=== PATIENT | female | born 1955 | race Caucasian/White ===

== ENCOUNTER → 2016-07-01 | Outpatient (CLI) | payer OTHER ==
[~2016-07-01] MED LIST: ACET325T82 PO; ALUMSUS2 PO; BISA10SU3 PR; COLE1TAB4 PO; COLE1TAB5 PO; DOCU1CAP PO; ENOX30IN4 SQ; ERTA1INJ IV; FAMO20TA11 PO; FERR325T18 PO; FLUC150T PO; FURO-85 PO; FURO20TA PO; INSDGI SC; LACT1TAB4 PO; LCTX PO; LEVO50TA PO; LEVO50TA6 PO; LISI-461 PO; LPR100 PO; MERO1INJ2 IV; METO-596 PO; MOMLX PO; MULT-513 PO; NRN/300 PO; OXYC1TAB3 PO; PRNJ PO; PROTEIN PO; SODIENE PR; VANC5CAP PO
[2016-07-01 08:27] LABS: HEMATOCRIT 30.1 % (37-47); MEAN CELL VOLUME 94.1 fL (80-100); MEAN CORPUSCULAR HEMOGLOBIN 27.8 pg (25-34); MEAN CORPUSCULAR HGB CONC 29.6 g/dl (32-36); MEAN PLATELET VOLUME 10.5 fL (7.4-10.4); PLATELET COUNT 385 K/uL (130-400); WHITE BLOOD COUNT 5.63 K/uL (4.8-10.8)
[2016-07-01 08:34] LABS: AST/SGOT 15 U/L (15-37); BLOOD UREA NITROGEN 7 mg/dl (7-18); BUN/CREATININE RATIO 11.8 (10-20); CARBON DIOXIDE 36 mmol/L (21-32); CHLORIDE 103 mmol/L (98-107); GLUCOSE 72 mg/dl (70-99); POTASSIUM 3.8 mmol/L (3.5-5.1); SODIUM 145 mmol/L (136-145)
[2016-07-01 08:38] LABS: ALB/GLOB RATIO 0.3 (0.9-2); ALKALINE PHOSPHATASE 98 U/L (45-117); ALT/SGPT 10 U/L (12-78); PREALBUMIN 4.7 mg/dl (20-40)
== END ==
LOC: C.LABCC 07:39
PROVIDERS: ATTEND Internal Medicine
DX: K65.1 Peritoneal abscess (principal)

== ENCOUNTER → 2016-07-02 | Outpatient (CLI) | payer OTHER ==
[2016-07-02 08:01] LABS: BASO % 0.2 %; BASO ABS # 0.01 K/uL (0-0.2); COMPLETE YES; EOS % 4.6 %; HEMATOCRIT 30.6 % (37-47); IG% 0.3 %; LYMPH % 24.4 %; LYMPH ABS # 1.43 K/uL (1.2-3.4); MEAN CELL VOLUME 94.2 fL (80-100); MEAN CORPUSCULAR HGB CONC 29.7 g/dl (32-36); MEAN PLATELET VOLUME 10.2 fL (7.4-10.4); MONO % 6.5 %; PLATELET COUNT 388 K/uL (130-400); RED BLOOD COUNT 3.25 M/uL (4.2-5.4); WHITE BLOOD COUNT 5.85 K/uL (4.8-10.8)
== END ==
LOC: C.LABCC 07:41
PROVIDERS: ATTEND Internal Medicine
DX: D64.9 Anemia, unspecified (principal)

== ENCOUNTER → 2016-07-08 | Outpatient (CLI) | payer OTHER ==
[2016-07-08 08:47] LABS: HEMATOCRIT 29.8 % (37-47); MEAN CELL VOLUME 93.4 fL (80-100); MEAN CORPUSCULAR HEMOGLOBIN 27.9 pg (25-34); MEAN CORPUSCULAR HGB CONC 29.9 g/dl (32-36); MEAN PLATELET VOLUME 10.4 fL (7.4-10.4); PLATELET COUNT 325 K/uL (130-400); RED BLOOD COUNT 3.19 M/uL (4.2-5.4)
[2016-07-08 09:01] LABS: ALB/GLOB RATIO 0.3 (0.9-2); ALKALINE PHOSPHATASE 124 U/L (45-117); ALT/SGPT 11 U/L (12-78); AST/SGOT 16 U/L (15-37); BLOOD UREA NITROGEN 9 mg/dl (7-18); BUN/CREATININE RATIO 19.5 (10-20); CALCIUM 8.4 mg/dl (8.5-10.1); CARBON DIOXIDE 37 mmol/L (21-32); CHLORIDE 99 mmol/L (98-107); CREATININE 0.44 mg/dl (0.60-1.20); GLUCOSE 44 mg/dl (70-99); POTASSIUM 4.3 mmol/L (3.5-5.1); SODIUM 141 mmol/L (136-145)
== END ==
LOC: C.LABCC 08:23
PROVIDERS: ATTEND Internal Medicine
DX: K65.1 Peritoneal abscess (principal)

== ENCOUNTER → 2016-07-10 | Outpatient (CLI) | payer OTHER ==
[2016-07-10 09:06] LABS: BASO % 0.3 %; BASO ABS # 0.02 K/uL (0-0.2); EOS % 2.9 %; HEMATOCRIT 29.3 % (37-47); IG% 0.3 %; LYMPH % 24.8 %; LYMPH ABS # 1.48 K/uL (1.2-3.4); MEAN CELL VOLUME 93.3 fL (80-100); MEAN CORPUSCULAR HEMOGLOBIN 27.7 pg (25-34); MEAN CORPUSCULAR HGB CONC 29.7 g/dl (32-36); MEAN PLATELET VOLUME 10.4 fL (7.4-10.4); MONO % 9.4 %; NEUT % 62.3 %; PLATELET COUNT 324 K/uL (130-400); RED BLOOD COUNT 3.14 M/uL (4.2-5.4); WHITE BLOOD COUNT 5.96 K/uL (4.8-10.8)
[2016-07-10 09:15] LABS: FERRITIN 200.3 ng/ml (8.0-388.0)
[2016-07-10 09:36] LABS: COMPLETE YES
== END ==
LOC: C.LABCC 08:24
PROVIDERS: ATTEND Internal Medicine
DX: D64.9 Anemia, unspecified (principal)

== ENCOUNTER → 2016-07-18 | Outpatient (CLI) | payer OTHER ==
[2016-07-18 08:41] LABS: BASO % 0.2 %; BASO ABS # 0.02 K/uL (0-0.2); EOS % 1.4 %; HEMATOCRIT 29.3 % (37-47); IG% 0.2 %; LYMPH % 20.5 %; LYMPH ABS # 1.73 K/uL (1.2-3.4); MEAN CELL VOLUME 92.1 fL (80-100); MEAN CORPUSCULAR HEMOGLOBIN 27.7 pg (25-34); MEAN PLATELET VOLUME 10.6 fL (7.4-10.4); NEUT % 69.7 %; PLATELET COUNT 337 K/uL (130-400); RED BLOOD COUNT 3.18 M/uL (4.2-5.4); WHITE BLOOD COUNT 8.42 K/uL (4.8-10.8)
[2016-07-18 09:22] LABS: ANISOCYTOSIS PRESENT; COMPLETE YES
== END ==
LOC: C.LABCC 08:11
PROVIDERS: ATTEND Internal Medicine
DX: D64.9 Anemia, unspecified (principal)

== ENCOUNTER → 2016-07-22 | Outpatient (CLI) | payer OTHER ==
[2016-07-22 08:25] LABS: HEMATOCRIT 29.2 % (37-47); MEAN CELL VOLUME 91.8 fL (80-100); MEAN CORPUSCULAR HGB CONC 29.5 g/dl (32-36); MEAN PLATELET VOLUME 10.3 fL (7.4-10.4); PLATELET COUNT 364 K/uL (130-400); RED BLOOD COUNT 3.18 M/uL (4.2-5.4); WHITE BLOOD COUNT 6.52 K/uL (4.8-10.8)
[2016-07-22 08:35] LABS: ALT/SGPT 9 U/L (12-78); AST/SGOT 10 U/L (15-37); BLOOD UREA NITROGEN 11 mg/dl (7-18); CALCIUM 8.3 mg/dl (8.5-10.1); CARBON DIOXIDE 39 mmol/L (21-32); CHLORIDE 97 mmol/L (98-107); CREATININE 0.59 mg/dl (0.60-1.20); GLUCOSE 80 mg/dl (70-99); SODIUM 142 mmol/L (136-145)
[2016-07-22 08:49] LABS: ALB/GLOB RATIO 0.3 (0.9-2); ALKALINE PHOSPHATASE 108 U/L (45-117); PREALBUMIN < 3.0 mg/dl (20-40)
== END ==
LOC: C.LABCC 07:58
PROVIDERS: ATTEND Internal Medicine
DX: L02.211 Cutaneous abscess of abdominal wall (principal)

== ENCOUNTER → 2016-07-24 | Outpatient (CLI) | payer OTHER ==
[2016-07-24 09:00] LABS: BASO % 0.3 %; BASO ABS # 0.02 K/uL (0-0.2); EOS % 1.8 %; HEMATOCRIT 28.8 % (37-47); IG% 0.5 %; LYMPH ABS # 1.17 K/uL (1.2-3.4); MEAN CORPUSCULAR HEMOGLOBIN 27.5 pg (25-34); MEAN CORPUSCULAR HGB CONC 29.9 g/dl (32-36); MEAN PLATELET VOLUME 10.3 fL (7.4-10.4); MONO % 9.2 %; NEUT % 70.2 %; PLATELET COUNT 365 K/uL (130-400); RED BLOOD COUNT 3.13 M/uL (4.2-5.4)
[2016-07-24 09:07] LABS: ALT/SGPT 9 U/L (12-78); BLOOD UREA NITROGEN 9 mg/dl (7-18); BUN/CREATININE RATIO 16.3 (10-20); CALCIUM 8.1 mg/dl (8.5-10.1); CARBON DIOXIDE 38 mmol/L (21-32); CHLORIDE 98 mmol/L (98-107); CREATININE 0.57 mg/dl (0.60-1.20); GLUCOSE 86 mg/dl (70-99); POTASSIUM 3.9 mmol/L (3.5-5.1); SODIUM 142 mmol/L (136-145)
[2016-07-24 09:10] LABS: ALB/GLOB RATIO 0.3 (0.9-2); ALKALINE PHOSPHATASE 95 U/L (45-117); AST/SGOT 12 U/L (15-37)
[2016-07-24 09:30] LABS: COMPLETE YES
== END ==
LOC: C.LABCC 08:33
PROVIDERS: ATTEND Internal Medicine
DX: D64.9 Anemia, unspecified (principal); A04.7 Enterocolitis due to Clostridium difficile

== ENCOUNTER → 2016-07-29 | Outpatient (CLI) | payer OTHER ==
[2016-07-29 09:00] LABS: ALT/SGPT 9 U/L (12-78); BLOOD UREA NITROGEN 28 mg/dl (7-18); BUN/CREATININE RATIO 13.5 (10-20); CALCIUM 8.2 mg/dl (8.5-10.1); CARBON DIOXIDE 37 mmol/L (21-32); CHLORIDE 97 mmol/L (98-107); GLUCOSE 95 mg/dl (70-99); POTASSIUM 4.6 mmol/L (3.5-5.1); SODIUM 139 mmol/L (136-145)
[2016-07-29 09:03] LABS: ALB/GLOB RATIO 0.3 (0.9-2); ALKALINE PHOSPHATASE 115 U/L (45-117); AST/SGOT 12 U/L (15-37)
[2016-07-29 09:12] LABS: HEMATOCRIT 30.4 % (37-47); MEAN CELL VOLUME 98.1 fL (80-100); MEAN CORPUSCULAR HEMOGLOBIN 27.7 pg (25-34); MEAN CORPUSCULAR HGB CONC 28.3 g/dl (32-36); MEAN PLATELET VOLUME 10.6 fL (7.4-10.4); PLATELET COUNT 411 K/uL (130-400); WHITE BLOOD COUNT 15.53 K/uL (4.8-10.8)
[2016-07-29 09:13] LABS: PREALBUMIN < 3.0 mg/dl (20-40)
== END | disposition home or self-care (01) ==
LOC: C.LABCC 08:33
PROVIDERS: ATTEND Internal Medicine
DX: K65.1 Peritoneal abscess (principal)

== ENCOUNTER 2016-07-30 21:16 | Emergency (ER) | payer OTHER ==
[~2016-07-30 21:16] MED LIST changes: -BISA10SU3 PR; -COLE1TAB4 PO; -FERR325T18 PO; -FLUC150T PO; -FURO20TA PO; -LACT1TAB4 PO; -LEVO50TA PO; -LPR100 PO; -MERO1INJ2 IV; -MOMLX PO; -PRNJ PO; -SODIENE PR
[2016-07-30] MEDS ORDERED: PRNJ PO (21:45)
[2016-07-30] MEDS ORDERED: FERR325T18 PO (21:45)
[2016-07-30] MEDS ORDERED: BISA10SU3 PR (21:45)
[2016-07-30] MEDS ORDERED: MERO1INJ2 IV (21:45)
[2016-07-30] MEDS ORDERED: MOMLX PO (21:45)
[2016-07-30] MEDS ORDERED: FLUC150T PO (21:45)
[2016-07-30] MEDS ORDERED: SODIENE PR (21:45)
[2016-07-30] MEDS ORDERED: COLE1TAB4 PO (21:46)
[2016-07-30] MEDS ORDERED: FURO20TA PO (21:49)
[2016-07-30] MEDS ORDERED: LACT1TAB4 PO (21:49)
[2016-07-30] MEDS ORDERED: SODIUM CHLORIDE 0.9% 1000ML 1,000 ML IV STA (21:49)
[2016-07-30] MEDS ORDERED: LISI-461 PO (21:51)
[2016-07-30] MEDS ORDERED: LEVO50TA PO (21:51)
[2016-07-30] MEDS ORDERED: LPR100 PO (21:51)
[2016-07-30 22:09] LABS: INR 1.2 (0.9-1.1); PROTHROMBIN TIME (PATIENT) 13.1 SECONDS (9.0-12.0)
[2016-07-30 22:14] LABS: ALT/SGPT 11 U/L (12-78); BLOOD UREA NITROGEN 35 mg/dl (7-18); BUN/CREATININE RATIO 11.6 (10-20); CALCIUM 7.9 mg/dl (8.5-10.1); CARBON DIOXIDE 34 mmol/L (21-32); CHLORIDE 97 mmol/L (98-107); GLUCOSE 119 mg/dl (70-99); MAGNESIUM 2.4 mg/dl (1.8-2.4); POTASSIUM 4.9 mmol/L (3.5-5.1); SODIUM 138 mmol/L (136-145)
[2016-07-30] MEDS ORDERED: VANCOMYCIN 1GM/270ML NSS IV STA (22:15)
[2016-07-30] MEDS ORDERED: AZTREONAM IV 2,000 MG in DEXTROSE 5% 100ML 100 ML IV STA (22:15)
[2016-07-30 22:17] VITALS: TEMP 34.4
[2016-07-30 22:19] LABS: ALKALINE PHOSPHATASE 112 U/L (45-117); AST/SGOT 44 U/L (15-37); CKMB/CK RATIO 0.3 (0-3.0)
[2016-07-30 22:26] LABS: URINE APPEARANCE TURBID (CLEAR); URINE COLOR ORANGE; URINE EPITHELIAL CELL AUTO >30 /lpf (0-5); URINE NITRITE POS (NEG); URINE PH 7.5 (4.5-7.5); UROBILINOGEN NEG (NEG); ZZURINE CULT IF INDIC CATH YES
[2016-07-30 22:28] LABS: MEAN CELL VOLUME 97.3 fL (80-100); MEAN CORPUSCULAR HEMOGLOBIN 27.4 pg (25-34); MEAN CORPUSCULAR HGB CONC 28.1 g/dl (32-36); MEAN PLATELET VOLUME 9.7 fL (7.4-10.4); PLATELET COUNT 358 K/uL (130-400); RED BLOOD COUNT 3.29 M/uL (4.2-5.4); WHITE BLOOD COUNT 18.02 K/uL (4.8-10.8)
[2016-07-30 22:29] LABS: MANUAL MICROSCOPIC REQUIRED? NO; REVIEW REQ? YES
[2016-07-30 22:36] LABS: SULFASALICYLIC ACID POS (NEG); URINE BILIRUBIN NEG (NEG)
[2016-07-30 22:52] LABS: BASO % 0.1 %; BASO ABS # 0.02 K/uL (0-0.2); COMPLETE YES; IG% 0.5 %; LYMPH % 7.4 %; LYMPH ABS # 1.34 K/uL (1.2-3.4); MONO % 3.5 %; NEUT % 87.5 %
[2016-07-30] MEDS ORDERED: DOPamine 400MG / D5W 400 MG IV STA (23:33)
[2016-07-30] MEDS ORDERED: NOREPINEPHRINE BIT INJ 8 MG in DEXTROSE 5% 500ML 500 ML IV STA (23:42)
[2016-07-30] MEDS ORDERED: CASPOFUNGIN INJ 70 MG in SODIUM CHLORIDE 0.9% 250ML 250 ML IV STA (23:44)
[2016-07-31] MEDS ORDERED: HYCODAN 60ML BOTTLE HOMEPACK PO ONE (00:15)
--- NOTE | 2016-07-31 01:51 | EMERGENCY ROOM VISIT NOTE ---
History Report prepared by [employer]: Miky López Under the Supervision of: Dr. Anton Schneider M.D. First contact with patient: 21:21 Chief Complaint: ALTERED MENTAL STATUS Stated Complaint: DECREASE MENTAL STATUS, NOT ABLE TO VOID History of Present Illness The patient is a 61 year old female who presents to the Emergency Room via ambulance from [facility] with complaints of sudden altered mental status beginning a few hours prior to arrival. Patient reportedly was starting to act confused about a week ago per her niece via phone. As per nursing staff, the patient was not acting herself and appeared lethargic. The nurse notes the patient has not been eating well over the last few days. The history is limited secondary to altered mental status. As are ROS Review of chart it appears that she has been on IV Ertapenem for the last month due to known intraabdominal abscess from ruptured diverticulitis. This is why a intraabdominal drain was placed over the last 2-3 months at [facility]. Also had known CDiff for which she has been on Vanco for the previous month. Source of History: nursing staff History Limited By: AMS Onset: few hours [employer] Position: other (global) Quality: other (AMS) Timing: other (sudden) Note: Associated symptoms: lethargic. Review of Systems The HPI and ROS are unobtainable secondary to the patient's altered mental status. Past Medical & Surgical Medical Problems: (1) Abdominal abscess (2) Acute renal failure (3) Bilateral pleural effusion (4) C. difficile diarrhea (5) CHF (congestive heart failure) (6) Congestive heart failure (7) Decreased ambulation status (8) Dehydration (9) Diabetes (10) Diarrhea (11) Hypertension (12) Lactic acidosis (13) Lymphedema (14) Sepsis (15) Shortness of breath (16) Shortness of breath (17) Weakness Family History Diabetes mellitus Hypertension Social History Smoking Status: Never Smoker Alcohol Use: none Drug Use: none Marital Status: Housing Status: lives with significant other Occupation Status: unemployed Current/Historical Medications Scheduled Colestipol Hcl (Micronized Colestipol Hcl), 2 GM PO BID Enoxaparin (Lovenox), 90 MG SQ QAM Famotidine (Pepcid), 20 MG PO BID Ferrous Gluconate (Ferrous Gluconate), 324 MG PO BID Fluconazole (Diflucan), 300 MG PO BID Furosemide (Lasix), 20 MG PO QAM Gabapentin (Neurontin), 300 MG PO BID Insulin Glargine (Lantus), 10 UNITS SC QAM Lactobacillus (Floranex), 1 TAB PO DAILY Levothyroxine Sodium (Synthroid), 50 MCG PO DAILY Lisinopril (Lisinopril), 10 MG PO DAILY Meropenem (Meropenem), 1 GM IV Q8 Metoprolol Tartrate (Metoprolol Tartrate), 100 MG PO BID Multivitamins/Minerals (Mvi With Minerals), 1 TAB PO DAILY Vancomycin Hcl (Vancomycin), 125 MG PO Q6 [House protein liquid], 30 ML PO BID Scheduled PRN Acetaminophen (Apap), 650 MG PO Q6 PRN for Pain Bisacodyl (Dulcolax), 1 SUPP KS PER PROTOCOL PRN for NO BM FOR 3 DAYS Magnesium Hydroxide (Milk of Magnesia), 30 MG PO PER PROTOCOL PRN for NO BM FOR 3 DAYS Oxycodone Ir (Roxicodone Ir), 5 MG PO Q4H PRN for Severe Pain Oxycodone Ir (Roxicodone Ir), 10 MG PO Q4H PRN for Severe Pain Prune Juice (Prune Juice ), Unknown Dose PO DAILY PRN for NO BM FOR 2 DAYS Sodium Phosphate/Biphosphate (Fleet Enema), 1 EA KS PER PROTOCOL PRN for NO BM FOR 4 DAYS Allergies Coded Allergies: Cephalexin (Verified Allergy, Unknown, HIVES, 07/30/16) Ciprofloxacin (Verified Allergy, Unknown, HIVES, 07/30/16) Sulfamethoxazole w/Trimethoprim (Verified Allergy, Unknown, unknown, ) Daptomycin (Verified Adverse Reaction, Unknown, elevated ck level, 07/30/16 ) Physical Exam Vital Signs Date Time Temp Pulse Resp B/P Pulse Ox O2 Delivery O2 Flow Rate FiO2 07/31/16 03:20 107/49 07/31/16 03:14 60 16 97/44 96 Nasal Cannula 2.0 07/31/16 03:13 97/44 07/31/16 03:08 60 14 95/40 97 Nasal Cannula 3.0 07/31/16 03:02 95/40 07/31/16 03:00 60 18 68/23 97 07/31/16 02:16 63 07/31/16 02:15 64 17 100 2/1/17 02:14 121/59 07/31/16 02:05 81/47 07/31/16 02:00 61 17 75/29 100 07/31/16 01:45 65 14 109/39 100 07/31/16 01:36 129/68 07/31/16 01:30 65 31 99 07/31/16 01:28 172/74 07/31/16 01:26 194/75 07/31/16 00:45 67 15 93/53 96 07/31/16 00:30 55 5 95 07/31/16 00:28 81/38 07/31/16 00:15 54 8 96/38 95 07/31/16 00:03 109/41 07/31/16 00:00 64 7 95 07/30/16 23:12 56 16 92/36 97 Nasal Cannula 4.0 07/30/16 23:00 60 16 104/40 97 Nasal Cannula 4.0 07/30/16 22:17 34.4 57 16 88/42 95 Nasal Cannula 4.0 07/30/16 21:32 62 Physical Exam GENERAL: Patient is acute on chronically unwell appearing. In no distress but somnolent/obtunded. Morbidly obese. HEENT: No acute trauma, normocephalic atraumatic, mucous membranes moist, no nasal congestion, no scleral icterus. NECK: No stridor, no adenopathy, no meningismus, trachea is midline. LUNGS: No dyspnea. Distant lung sounds. Periodic cough. HEART: Regular rate and rhythm. No murmurs, rubs, gallops appreciated. ABDOMEN: Morbidly obese, Unable to hear bowel sounds. drain mid abdomen with minimal outs. Soft without any clear tenderness though difficult to get true exam with obesity. BACK: Difficult to exam though with roll no acute TTP appreciated, no step off EXTREMITIES: PICC line left arm. Diffuse anasarca/edema. Weak periodic attempts at movement arms/legs. Cool distal extremities. Lymphedema. Chronic cellulitic findings of legs. NEUROLOGIC: Answers in simple one word, yes or no, sentences between periodically moaning. Diffuse weakness no focal findings. SKIN: Cool extremities, no rash, no jaundice, no diaphoresis. Medical Decision & Procedures ER Provider Diagnostic Interpretation: X ray results are stated below per my interpretation. The Chest X-ray revealed a large heart. Diffuse edema. PICC line in place. No pneumothorax. Laboratory Results 07/30/16 21:44 Red Blood Count 3.29, Mean Corpuscular Volume 97.3, Mean Corpuscular Hemoglobin 27.4, Mean Corpuscular Hemoglobin Concent 28.1, Mean Platelet Volume 9.7, Neutrophils (%) (Auto) 87.5, Lymphocytes (%) (Auto) 7.4, Monocytes (%) (Auto) 3.5, Eosinophils (%) (Auto) 1.0, Basophils (%) (Auto) 0.1, Neutrophils # (Auto) 15.76, Lymphocytes # (Auto) 1.34, Monocytes # (Auto) 0.63, Eosinophils # (Auto) 0.18, Basophils # (Auto) 0.02 07/30/16 21:44 Test 07/30/16 21:41 07/30/16 21:44 07/30/16 22:10 07/31/16 02:00 Bedside Lactic Acid Venous 0.93 mmol/L (0.90-1.70) White Blood Count 18.02 K/uL (4.8-10.8) Red Blood Count 3.29 M/uL (4.2-5.4) Hemoglobin 9.0 g/dL (12.0-16.0) Hematocrit 32.0 % (37-47) Mean Corpuscular Volume 97.3 fL (80-100) Mean Corpuscular Hemoglobin 27.4 pg (25-34) Mean Corpuscular Hemoglobin Concent 28.1 g/dl (32-36) Platelet Count 358 K/uL (130-400) Mean Platelet Volume 9.7 fL (7.4-10.4) Neutrophils (%) (Auto) 87.5 % Lymphocytes (%) (Auto) 7.4 % Monocytes (%) (Auto) 3.5 % Eosinophils (%) (Auto) 1.0 % Basophils (%) (Auto) 0.1 % Neutrophils # (Auto) 15.76 K/uL (1.4-6.5) Lymphocytes # (Auto) 1.34 K/uL (1.2-3.4) Monocytes # (Auto) 0.63 K/uL (0.11-0.59) Eosinophils # (Auto) 0.18 K/uL (0-0.5) Basophils # (Auto) 0.02 K/uL (0-0.2) RDW Standard Deviation 61.6 fL (36.4-46.3) RDW Coefficient of Variation 17.4 % (11.5-14.5) Immature Granulocyte % (Auto) 0.5 % Immature Granulocyte # (Auto) 0.09 K/uL (0.00-0.02) Basophilic Stippling 1+ Prothrombin Time 13.1 SECONDS (9.0-12.0) Prothromb Time International Ratio 1.2 (0.9-1.1) Anion Gap 7.0 mmol/L (3-11) Estimated GFR () 18.5 Estimated GFR (Non- 16.0 BUN/Creatinine Ratio 11.6 (10-20) Calcium Level 7.9 mg/dl (8.5-10.1) Magnesium Level 2.4 mg/dl (1.8-2.4) Total Bilirubin 0.3 mg/dl (0.2-1) Direct Bilirubin 0.1 mg/dl (0-0.2) Aspartate Amino Transf (AST/SGOT) 44 U/L (15-37) Alanine Aminotransferase (ALT/SGPT) 11 U/L (12-78) Alkaline Phosphatase 112 U/L (45-117) Total Creatine Kinase 875 U/L (26-192) Creatine Kinase MB 2.7 ng/ml (0.5-3.6) Creatine Kinase MB Ratio 0.3 (0-3.0) Troponin I < 0.015 ng/ml (0-0.045) Total Protein 6.2 gm/dl (6.4-8.2) Albumin 1.3 gm/dl (3.4-5.0) Urine Color ORANGE Urine Appearance TURBID (CLEAR) Urine pH 7.5 (4.5-7.5) Urine Specific [place] 1.020 (1.000-1.030) Urine Protein 1+ (NEG) Urine Glucose (UA) NEG (NEG) Urine Ketones 4+ (NEG) Urine Occult Blood 2+ (NEG) Urine Nitrite POS (NEG) Urine Bilirubin NEG (NEG) Urine Urobilinogen NEG (NEG) Urine Leukocyte Esterase LARGE (NEG) Urine WBC (Auto) >30 /hpf (0-5) Urine RBC (Auto) 10-30 /hpf (0-4) Urine Hyaline Casts (Auto) 0 /lpf (0-5) Urine Epithelial Cells (Auto) >30 /lpf (0-5) Urine Bacteria (Auto) NEG (NEG) Urine Pathogenic Casts /lpf (0) Urine Yeast (Auto) (NONE PRSENT) Bedside Blood Gas pH (LAB) 7.25 (7.35-7.45) Bedside Blood Gas pCO2 (LAB) 76 mmHg (35-46) Bedside Blood Gas pO2 (LAB) 142 mmHg (80-95) Bedside Blood Gas HCO3 (LAB) 33 meq/L (19-24) Bedside Blood Gas Total CO2 35 mEq/l (24-31) Bedside Blood Gas Base Excess (LAB) 5.0 meq/L (-9-1.8) Bedside Blood Gas O2 Saturation 99.0 % (90-95) Laboratory results as reviewed by me. Medications Administered Medications (Trade) Dose Ordered Sig/Bri Route Start Time Stop Time Status Last Admin Dose Admin Sodium Chloride 1,000 ml @ 999 mls/hr Q1H1M STAT IV 07/30/16 21:49 07/30/16 22:49 DC 07/30/16 21:49 999 MLS/HR Aztreonam/Dextrose (Azactam IV/D5 100ml) 110 ml @ 100 mls/hr NOW STAT IV 07/30/16 22:15 07/30/16 23:20 DC 07/30/16 23:01 100 MLS/HR Vancomycin HCl 1 gm 1 gm NOW STAT IV 07/30/16 22:15 07/30/16 22:18 DC 07/30/16 23:01 1 GM Norepinephrine Bitartrate 8 mg/ Dextrose 508 ml @ 0 mls/hr Q0M STAT IV 07/30/16 23:42 07/30/16 23:43 DC 07/31/16 02:07 30 MLS/HR Caspofungin/ Sodium Chloride (Cancidas Inj/ Nss 250ml) 260 ml @ 250 mls/hr NOW STAT IV 07/30/16 23:44 07/31/16 00:46 DC 07/31/16 01:42 250 MLS/HR Metronidazole (Flagyl / Nss) 500 mg NOW STAT IV 07/31/16 01:52 07/31/16 01:53 DC 07/31/16 02:35 500 MG ECG Indication: altered mental status Rate (beats per minute): 59 Rhythm: sinus bradycardia Findings: no acute ischemic change, no ectopy, other (low voltage QRS) ED Course 2134: The patient was evaluated in room A1. A complete history and physical exam was performed. 2148: Ordered Sodium Chloride 1,000 ml @ 999 mls/hr IV. 2157: Reevaluated the patient at this time, and they are currently attempting to place a Chen. 5: Ordered Vancomycin HCl 1 gm IV, Aztreonam 2,000 mg/Dextrose 110 ml @ 100 mls/hr IV. 2220: It is noted the patient's blood pressure has improved. 2259: I spoke to DARINEL Hou (Hospitalist) about the patient's case, and he will follow the patient for further evaluation. He recommended ordering a CT of the Abdomen and Pelvis without contrast to evaluate for perforated diverticulitis.. 2300: The sister called and noted the patient began acting confused one week ago. 2332: It is noted the patient now hypotensive and Dopamine has been ordered. 2333: Ordered Dopamine HCl/Dextrose 0 ml @ 0 mls/hr IV. 2342: Ordered Norepinephrine Bitartrate 8 mg/Dextrose 508 ml @ 0 mls/hr Protocol IV. 2343: I spoke to DARINEL Soto (Inside Sales Account Representative) about the patient's case, and he asked to order Levophed instead of Dopamine. 2344: Ordered Caspofungin 70 mg/ Sodium Chloride 260 ml @ 250 mls/hr IV. 01:30 Able to titrate down Levophed 01:45 Decision made to transfer to higher level of care. Medical Decision Differential: Toxicological, Infectious, Stroke, SAH, Trauma, Electrolyte Abnormality, Hypoglycemia, Alcohol Intoxication, Drug Intoxication, Cardiac Abnormality, Sepsis, Meningitis/Encephalitis, Trauma, Excited Delirium, Serotonin Syndrome, Psychiatric, amongst other pathologies entertained. 61 yr old female with many chronic medical comorbidities (DMII, CHF, Morbid Obesity, HTN, Lymphedema, cdiff, MRSA, chronic renal insufficiency) with recent intraabdominal drain placed after perforation of diverticulitis. She is ill appearing and obtunded though after fluids and Levophed began waking up more. She had chen placed with scant exudative drainage. She is hypothermic, bradycardic and hypotensive. Consistent Given 2 L NSS bolus with minimal improvement in BP. Started on Levophed with rapid improvement in mental status and blood pressure. Given empiric abx of vanco/aztreonam given her known resistances and multiple drug allergies. Added in Caspofungin at request of critical care medicine. Labs reveal worsening leukocytosis, acute on chronic renal failure, low albumen , moderately elevated CK, OK lactic acid. Does have left picc line which blood culture was taken from. This was used for access as no other access without placing central line. Unable to palpate abg initially due to lymphedema. Initial CT abdomen done due to known intraabdominal issues without clear findings though with amount of stranding difficult to ascertain and with known renal failure and stupor I do not feel that PO nor IV contrast reasonable. She was then taken over to CT and 500cc NSS placed by gravity along with 1L Gastrographin in to rectum. Patient awake and much more responsive on return from CT. We were able to take down Levophed and patient BP now stabilizing. Appreciate input of Dr Wood of [facility] who was down in ED managing patient with me. He discussed case directly with [facility]. Seems likely this is fistula from bladder to mid-abdominal drain with minimal return of any of the 500cc's NSS placed in bladder. 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 She previously was cared for at [facility] where she was transferred emergently by air for further management/treatment. Given critically ill and septic shock will transfer via air. We were able to obtain abg/vbg revealing moderate acidosis but given patient now awakening with improvement in BP will hold on intubation at this time as she is maintaining airway currently. Patient given 125ml/hr NSS infusion while awaiting transfer. Slowly requiring increasing dosing on Levophed. Transfer delayed due to snowy weather. Patient continued to maintain airway throughout prolonged time in ED. Patient with good flow from rectal tube thus will not remove for now. Chen in place with some return. Consults Time Called: [phone] Consulting Physician: DARINEL Hou (Hospitalist) Returned Call: [phone] I spoke to DARINEL Hou (Hospitalist) about the patient's case. We will discuss with Dr Wood of [facility] to come evaluate patient further. Additional Consults: Time Called: [phone] Consulted Physician: DARINEL Soto (Inside Sales Account Representative) Returned Call: [phone] Additional Comments: I spoke to DARINEL Soto (Inside Sales Account Representative) about the patient's case. He assisted in getting further imaging and management of patient. After discussion of this plan will be to transfer to higher level of care as she will need interventional radiology along with multiple other specialists. 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 This was a life/limb threatening event. This includes time spent evaluating patient, direct bedside care, chart review, placing orders, interpretation of diagnostic studies, discussion with consultants, patient, and family members, as well as other required patient management activities. This 130 minutes is in excess of all separately billable procedures. Scribe Attestation The scribe's documentation has been prepared under my direction and personally reviewed by me in its entirety. I confirm that the note above accurately reflects all work, treatment, procedures, and medical decision making performed by me. Departure Information Dispostion Being Evaluated By Hospitalist (DARINEL Hou (Hospitalist)) Referrals [place] (PCP) Problem Qualifiers Additional Impressions: UTI (urinary tract infection) Urinary tract infection type: acute cystitis Hematuria presence: without hematuria Qualified Codes: N30.00 - Acute cystitis without hematuria Altered mental status Altered mental status type: somnolence Qualified Codes: R40.0 - Somnolence
[2016-07-31] MEDS ORDERED: METRONIDAZOLE 500MG / 100ML NSS IV STA (01:52)
[2016-07-31 02:16] LABS: ISTAT ARTERIAL BLOOD GAS HCO3 33 meq/L (19-24); ISTAT ARTERIAL BLOOD GAS PCO2 76 mmHg (35-46); ISTAT ARTERIAL BLOOD GAS PO2 142 mmHg (80-95); ISTAT ARTERIAL BLOOD GAS pH 7.25 (7.35-7.45); ISTAT CARBON DIOXIDE 35 mEq/l (24-31)
--- NOTE | 2016-07-31 02:32 | Critical Care Consultation ---
Critical Care Consultation Date of Consultation: Jul 31, 2016. Attending Physician: Bronson Schneider MD Reason for Consultation: undifferentiated septic shock History of Present Illness 61-year-old female with a significant past medical history hypertension, congestive heart failure, diabetes mellitus type 2, chronic lymphedema of the lower extremities with chronic cellulitis who was seen in April for a ruptured diverticuliti. At that time she was likely septic, was found to have an intra-abdominal fluid collection. She was eventually transferred to [facility] for further evaluation and management. She had a IR placed drain into this fluid collection. She spends roughly 2 months in [facility] in the ICU and was recently discharged to [facility]. Per records the patient's niece reports that she's had decreased mental status approximately one week, there has been little urine output which prompted her transfer to [facility] emergency department for further evaluation. In the ED she was found to be hypotensive, hypothermic, bradycardic. The emergency department staff placed a Menezes which drained sriram pus. Initial CT scan of the abdomen and pelvis was difficult to interpret due to lack of contrast to the patient with an FATEMEH. My overlying concern was a fistula from the abscess cavity or the rectum into the bladder. We repeated the CT scan with rectal contrast, and 500 mL of normal saline instilled into the bladder through the Menezes. In discussion with the [facility] radiologist Dr. 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 Patient's mental status improved with administration of norepinephrine, this was through an indwelling PICC in the left antecubital fossa. Blood cultures were obtained from this PICC as well as the periphery. She has been started on aztreonam as she has been on long-standing ertapenem, Flagyl for anaerobes and possible C. difficile colitis which she has been treated for, vancomycin, and caspofungin for possible perforated viscous. Family History Diabetes mellitus Hypertension Social History Smoking Status: Never Smoker Drug Use: none Marital Status: Housing Status: lives with significant other Occupation Status: unemployed Allergies Coded Allergies: Cephalexin (Verified Allergy, Unknown, HIVES, 07/30/16) Ciprofloxacin (Verified Allergy, Unknown, HIVES, 07/30/16) Sulfamethoxazole w/Trimethoprim (Verified Allergy, Unknown, unknown, ) Daptomycin (Verified Adverse Reaction, Unknown, elevated ck level, 07/30/16 ) Home Medications Scheduled Colestipol Hcl (Micronized Colestipol Hcl), 2 GM PO BID Enoxaparin (Lovenox), 90 MG SQ QAM Famotidine (Pepcid), 20 MG PO BID Ferrous Gluconate (Ferrous Gluconate), 324 MG PO BID Fluconazole (Diflucan), 300 MG PO BID Furosemide (Lasix), 20 MG PO QAM Gabapentin (Neurontin), 300 MG PO BID Insulin Glargine (Lantus), 10 UNITS SC QAM Lactobacillus (Floranex), 1 TAB PO DAILY Levothyroxine Sodium (Synthroid), 50 MCG PO DAILY Lisinopril (Lisinopril), 10 MG PO DAILY Meropenem (Meropenem), 1 GM IV Q8 Metoprolol Tartrate (Metoprolol Tartrate), 100 MG PO BID Multivitamins/Minerals (Mvi With Minerals), 1 TAB PO DAILY Vancomycin Hcl (Vancomycin), 125 MG PO Q6 [House protein liquid], 30 ML PO BID Scheduled PRN Acetaminophen (Apap), 650 MG PO Q6 PRN for Pain Bisacodyl (Dulcolax), 1 SUPP OK PER PROTOCOL PRN for NO BM FOR 3 DAYS Magnesium Hydroxide (Milk of Magnesia), 30 MG PO PER PROTOCOL PRN for NO BM FOR 3 DAYS Oxycodone Ir (Roxicodone Ir), 5 MG PO Q4H PRN for Severe Pain Oxycodone Ir (Roxicodone Ir), 10 MG PO Q4H PRN for Severe Pain Prune Juice (Prune Juice ), Unknown Dose PO DAILY PRN for NO BM FOR 2 DAYS Sodium Phosphate/Biphosphate (Fleet Enema), 1 EA OK PER PROTOCOL PRN for NO BM FOR 4 DAYS Physical Exam Date Time Temp Pulse Resp B/P Pulse Ox O2 Delivery O2 Flow Rate FiO2 07/30/16 23:12 56 16 92/36 97 Nasal Cannula 4.0 07/30/16 23:00 60 16 104/40 97 Nasal Cannula 4.0 07/30/16 22:17 34.4 57 16 88/42 95 Nasal Cannula 4.0 07/30/16 21:32 62 General: Poorly arousable, sonorous respirations: This improved with Levophed administration and the patient was oriented to self only Cardiovascular: Weak peripheral pulses, distant heart sounds difficult exam secondary to body habitus Pulmonary: Distended lung sounds Abdomen: Morbid obesity, drain in the center abdomen. Extremities: Cellulitis of the bilateral lower extremities weeping wounds Neuro: Oriented to self after the administration of Levophed moves all 4 extremities Skin: Cellulitis the bilateral lower extremities, numerous weeping wounds, no obvious necrotizing fasciitis or cutaneous abscesses Laboratory Results Last 24 Hours Test 07/30/16 21:41 07/30/16 21:44 07/30/16 22:10 07/30/16 23:44 Bedside Lactic Acid Venous 0.93 mmol/L White Blood Count 18.02 K/uL Red Blood Count 3.29 M/uL Hemoglobin 9.0 g/dL Hematocrit 32.0 % Mean Corpuscular Volume 97.3 fL Mean Corpuscular Hemoglobin 27.4 pg Mean Corpuscular Hemoglobin Concent 28.1 g/dl Platelet Count 358 K/uL Mean Platelet Volume 9.7 fL Neutrophils (%) (Auto) 87.5 % Lymphocytes (%) (Auto) 7.4 % Monocytes (%) (Auto) 3.5 % Eosinophils (%) (Auto) 1.0 % Basophils (%) (Auto) 0.1 % Neutrophils # (Auto) 15.76 K/uL Lymphocytes # (Auto) 1.34 K/uL Monocytes # (Auto) 0.63 K/uL Eosinophils # (Auto) 0.18 K/uL Basophils # (Auto) 0.02 K/uL RDW Standard Deviation 61.6 fL RDW Coefficient of Variation 17.4 % Immature Granulocyte % (Auto) 0.5 % Immature Granulocyte # (Auto) 0.09 K/uL Basophilic Stippling 1+ Prothrombin Time 13.1 SECONDS Prothromb Time International Ratio 1.2 Sodium Level 138 mmol/L Potassium Level 4.9 mmol/L Chloride Level 97 mmol/L Carbon Dioxide Level 34 mmol/L Anion Gap 7.0 mmol/L Blood Urea Nitrogen 35 mg/dl Creatinine 3.00 mg/dl Estimated GFR () 18.5 Estimated GFR (Non- 16.0 BUN/Creatinine Ratio 11.6 Random Glucose 119 mg/dl Calcium Level 7.9 mg/dl Magnesium Level 2.4 mg/dl Total Bilirubin 0.3 mg/dl Direct Bilirubin 0.1 mg/dl Aspartate Amino Transf (AST/SGOT) 44 U/L Alanine Aminotransferase (ALT/SGPT) 11 U/L Alkaline Phosphatase 112 U/L Total Creatine Kinase 875 U/L Creatine Kinase MB 2.7 ng/ml Creatine Kinase MB Ratio 0.3 Troponin I < 0.015 ng/ml Total Protein 6.2 gm/dl Albumin 1.3 gm/dl Urine Color ORANGE Urine Appearance TURBID Urine pH 7.5 Urine Specific [place] 1.020 Urine Protein 1+ Urine Glucose (UA) NEG Urine Ketones 4+ Urine Occult Blood 2+ Urine Nitrite POS Urine Bilirubin NEG Urine Urobilinogen NEG Urine Leukocyte Esterase LARGE Urine WBC (Auto) >30 /hpf Urine RBC (Auto) 10-30 /hpf Urine Hyaline Casts (Auto) 0 /lpf Urine Epithelial Cells (Auto) >30 /lpf Urine Bacteria (Auto) NEG Urine Pathogenic Casts /lpf Urine Yeast (Auto) Diagnostic Results I have reviewed both [facility] CT scan reports as well as independently reviewed the images I have reviewed the single view chest x-ray, likely cardiomegaly, no obvious pulmonary lobar infiltrate EKG: Sinus bradycardia rate of 59 right axis deviation low QRS voltage. Assessment & Plan #1 intra-abdominal sepsis secondary to medical perfect viscus versus abscess fistula - Broad-spectrum antibiotics including vancomycin, aztreonam, Flagyl, caspofungin - Blood cultures sent from indwelling PICC as well as periphery - Patient given 2 L normal saline bolus, fluids running at 125 per hour, concern for CHF - Started Levophed #2 hypercarbic respiratory failure - Likely obesity-related hypoventilation syndrome versus underlying lung disease (COPD) - Though threshold to initiate noninvasive ventilation - Patient would be difficult airway secondary to profound morbid obesity #3 acute kidney injury - Fluid hydration - Avoid nephrotoxins #4 morbid obesity Per records at [facility] patient is 5 feet 2 inches, reportedly from [facility] patient was just weighed Friday and weight 347, BMI 63.5 #5 anemia #6 hypoalbuminemia Patient ultimately requires urology, bariatric surgery, interventional radiology , we do not have interventional radiology nor bariatric surgery at this institution, I discussed this with the emergency medicine attending Bronson Schneider and we have initiated transfer to [facility] by helicopter EMS. I have personally spent 130 minutes of critical care time in the direct management of this patient. This is a life/limb threatening event. This includes time spent evaluating patient, direct bedside care, chart review, placing orders, interpretation of diagnostic studies, discussion with consultants, patient, and family members, as well as other required patient management activities. This time is exclusive of all separately billable procedures, and teaching time and separate from and in addition to any other critical care service time.
[2016-07-31 03:14] VITALS: PULSE 60; O2SAT 96
[2016-07-31 03:20] VITALS: BP 107/49
--- NOTE | 2016-07-31 07:12 | DIAGNOSTIC IMAGING REPORT ---
ABDOMEN AND PELVIS CT WITHOUT CONTRAST CT DOSE: 2289.02 mGy.cm HISTORY: Infection septic shock, history perf diverticulitis. TECHNIQUE: Multiaxial CT images of the abdomen and pelvis were performed without the use of intravenous and oral contrast according to the standard department stone protocol. COMPARISON STUDY: 05/28/2016 FINDINGS: Study is acquired without contrast enhancement. This limits diagnostic motility. There is a small left and to a lesser extent right pleural effusion. A be a drainage catheter has been placed into a collection previously described in the anterior pelvic region. There are progressive infiltrative change surrounding the catheter and regional area of the anterior abdominal wall and associated pannus. Multiple smaller pockets potentially are present although lack of contrast enhancement limits evaluation regard. Kidneys remain negative for hydronephrosis. The liver spleen and pancreas are unremarkable. IMPRESSION: 1. Somewhat limited exam due to the absence of the contrast enhancement of any type. 2. Interval placement of a drainage catheter anterior soft tissue pelvic region. 3. Regional infiltrative changes of the surrounding fat anterior abdominal wall and anterior pelvis a progressive. No evidence for bowel obstruction. 4. Overall appearance is one of progressive anterior pelvic inflammatory regional process despite interval placement of a drainage catheter Electronically signed by: Doug Galicia M.D. 07/31/2016 7:11 AM Dictated Date/Time: 07/31/2016 6:55 AM
--- NOTE | 2016-07-31 07:13 | DIAGNOSTIC IMAGING REPORT ---
HEAD CT NONCONTRAST CT DOSE: 651.12 mGy.cm HISTORY: Altered mental status. TECHNIQUE: Multiaxial CT images of the head were performed without the use of intravenous contrast. Automated exposure control was utilized for this study. Comparison: Head CT 05/28/2016. Findings: The paranasal sinuses and mastoid air cells are clear. The calvarium and skull base are intact. The ventricles and sulci are within normal limits. There is no mass, hematoma, midline shift, or acute infarct. Suboptimal evaluation of the posterior fossa due to the patient's body habitus. Impression: No acute intracranial abnormality. Electronically signed by: Malik Sharif M.D. 07/31/2016 7:12 AM Dictated Date/Time: 07/31/2016 7:10 AM
--- NOTE | 2016-07-31 07:31 | DIAGNOSTIC IMAGING REPORT ---
ABDOMEN AND PELVIS CT WITH ORAL CONTRAST CT DOSE: 2128.40 mGy.cm HISTORY: Infection. gastrographing enema. Fill bladder 500cc NSS. TECHNIQUE: Multiaxial CT images of the abdomen and pelvis were performed following the use of oral contrast. COMPARISON STUDY: 07/30/2016 FINDINGS: Small bilateral pleural effusions unchanged. Mild bibasilar atelectatic change. There has been interval opacification of the rectosigmoid. Contrast extends to the mid sigmoid with no evidence for distal extension. At the level of the mid sigmoid is suggestion of fistulous tract extension to the complex collection containing the drainage catheter. Possible of a small fistulous connection connecting to the superior bladder dome is considered. The diffuse infiltrative change throughout the anterior and mid pelvis is similar as compared to the prior study. No new or additional information is present. Kidneys remain negative for hydronephrosis. IMPRESSION: Fluid within the bladder as well as contrast within the rectosigmoid appears to suggest fistulous tract connection between the mid sigmoid and complex collection containing a drainage catheter of the anterior pelvis. 2. Potential additional fistulous tract connection to the superior bladder although this is not well-defined. 3. Somewhat progressive infiltrative changes throughout the anterior pelvis /anterior abdominal wall pannus region which has been described previously. Electronically signed by: Doug Galicia M.D. 07/31/2016 7:29 AM Dictated Date/Time: 07/31/2016 7:24 AM
--- NOTE | 2016-07-31 07:34 | DIAGNOSTIC IMAGING REPORT ---
CHEST ONE VIEW PORTABLE CLINICAL HISTORY: fever dyspnea COMPARISON STUDY: 05/28/2016 FINDINGS: Moderate cardiac megaly. Central catheter right atrium. Findings of somewhat progressive left basilar infiltrative change combined with pulmonary edema area IMPRESSION: Pulmonary edema combined with a left basilar consolidative change. Stable cardia megaly. Electronically signed by: Doug Galicia M.D. 07/31/2016 7:33 AM Dictated Date/Time: 07/31/2016 7:30 AM
== END 2016-07-31 03:50 | disposition short-term general hospital (02) ==
LOC: EDBD 21:16 → C.EDA 21:19 → C.ED 07-31 03:50
DX: A41.9 Sepsis, unspecified organism (principal); R65.21 Severe sepsis with septic shock; N17.9 Acute kidney failure, unspecified; N30.00 Acute cystitis without hematuria; R40.0 Somnolence; E11.649 Type 2 diabetes mellitus with hypoglycemia without coma; E11.29 Type 2 diabetes mellitus with other diabetic kidney complication; Z79.4 Long term (current) use of insulin; N18.9 Chronic kidney disease, unspecified; I50.9 Heart failure, unspecified; E88.09 Other disorders of plasma-protein metabolism, not elsewhere classified; J44.9 Chronic obstructive pulmonary disease, unspecified; L03.116 Cellulitis of left lower limb; L03.115 Cellulitis of right lower limb; E66.01 Morbid (severe) obesity due to excess calories; I95.9 Hypotension, unspecified; I89.0 Lymphedema, not elsewhere classified; I12.9 Hypertensive chronic kidney disease with stage 1 through stage 4 chronic kidney disease, or unspecified chronic kidney disease; D72.829 Elevated white blood cell count, unspecified